=== PATIENT | female | born 1965 | race Caucasian/White ===

== ENCOUNTER → 2016-06-30 | Outpatient (CLI) | payer BC ==
[~2016-06-30] MED LIST: ASPI81TA28 PO; DOXY100C2 PO; ESTR1.252 PO; MULT-513 PO
--- NOTE | 2016-06-30 12:58 | MAMMOGRAPHY REPORT ---
ULTRASOUND OF RIGHT BREAST: 06/30/2016 CLINICAL HISTORY: 50-year-old woman presents for follow-up in the right breast of probably benign hy poechoic circumscribed masses. She has a history of bilateral saline implants. COMPARISON: Comparison is made to exams dated: 12/31/2015 ultrasound, 12/18/2015 mammogram, 10/29/19 12 mammogram, 10/22/2010 mammogram, 08/20/2009 mammogram - [facility], and 03/20/2008 . FINDINGS: Targeted ultrasound was performed in the right upper outer quadrant with particular atten tion to the 11:00 and 12:00 axes. In the 12:00 periareolar right breast, there is a lobulated and c ircumscribed hypoechoic solid versus cystic mass without posterior acoustic shadowing or significant posterior acoustic enhancement. It measures approximately 5.1 x 3.1 x 4.7 mm. When comparing to t he prior ultrasound performed 12/31/2015, this appears slightly smaller in size. At that time it me asured 8.0 x 5.5 x 8.0 mm. In the 11:00 right breast, 3 cm from the nipple, there is a circumscribe d isoechoic solid-appearing mass measuring 4.7 x 4.9 x 4.7 mm. The previous ultrasound performed 2015 demonstrated a similar appearing isoechoic mass which measured 5.3 x 5.0 x 5.1 mm. This is considered stable. In the 11:00 periareolar right breast there is a lobulated parallel isoechoi c solid-appearing mass measuring 4.6 x 2.8 x 5.2 mm, previously measured 5.6 x 3.2 x 5.5 mm. This i s also considered stable. There are tubular anechoic structures leading up to this mass which could represent ducts, suggesting this could represent a papilloma. I discussed with the patient that th yumiko masses could represent fibroadenomas or papillomas and it is controversial as papillomas all req uire surgical excision. We could potentially perform ultrasound-guided core biopsy of all 3 masses, but given that they are stable to decreased in size compared to the prior exam, it is reasonable to perform another targeted ultrasound to ensure longer stability. If any of the masses enlarge at ne xt follow up, an ultrasound guided core biopsy will be required. IMPRESSION: ACR-BI-RADS CATEGORY 3: PROBABLY BENIGN - FOLLOW-UP RECOMMENDED 3 circumscribed benign-appearing masses in the 11:00 and 12:00 axes of the right breast are stable t o subtly decreased in size compared to the prior exam. Another six-month follow-up targeted ultraso und is needed to ensure longer stability. Annual bilateral screening mammography will also be due a t that time. These results are recommendations were discussed with the patient at the time of the exam. Steffi Eduardo M.D. ay/:06/30/2016 12:04:46 Patient Intake Coordinator: Dr. Steffi Eduardo, [facility] letter sent: Follow Up Recommended 3 BI-RADS Code: ACR-BI-RADS Category 3: Probably Benign
== END | disposition home or self-care (01) ==
LOC: C.MAMM 11:33
PROVIDERS: ATTEND Surgery
DX: N63 Unspecified lump in breast (principal); Z98.82 Breast implant status

== ENCOUNTER → 2016-12-20 | Outpatient (CLI) | payer BC ==
--- NOTE | 2016-12-20 15:03 | MAMMOGRAPHY REPORT ---
BILATERAL DIGITAL DIAGNOSTIC MAMMOGRAM TOMOSYNTHESIS WITH CAD AND TARGETED BILATERAL ULTRASOUND: 12/08 CLINICAL HISTORY: 51-year-old woman with a history of saline implants presents for annual bilateral m ammography and also reassess benign-appearing hypoechoic masses in the right breast seen on prior ult rasound. TECHNIQUE: Bilateral CC and MLO views of the breasts with and without implant displacement views wer e obtained. Tomosynthesis was also performed on the implant displaced views. Additional implant dis placed spot magnification left CC and ML views were also obtained. Current study was also evaluated with a Computer Aided Detection (CAD) system. COMPARISON: Comparison is made to exams dated: 06/30/2016 ultrasound, 12/31/2015 ultrasound, 12/18/19 16 mammogram, 10/29/2011 mammogram, 10/22/2010 mammogram, and 08/20/2009 mammogram - [facility]. BREAST COMPOSITION: The tissue of both breasts is heterogeneously dense, which may obscure small mas ses. FINDINGS: Bilateral subpectoral saline implants are intact. There are a few benign rim calcificatio ns in the breasts. On the implant displaced views, there is a possible new cluster of microcalcifica tions in the 6:00 anterior left breast for which additional spot magnification views were obtained. On the spot magnification views, there is a 3.5 mm cluster of amorphous microcalcifications in the 6: 00 anterior subareolar breast, not definitely seen on prior mammograms. There are possibly a few mor e amorphous microcalcifications medial and anterior to the first. No other suspicious microcalcifica tions are seen in the visualized left breast. The new 3.5 mm cluster of calcifications are indetermi dangelo, warranting definitive characterization with a stereotactic biopsy. On the implant displaced vi ews, there is stable nodularity bilaterally. No focal area of architectural distortion is identified . No other suspicious calcifications. Targeted ultrasound was performed in the 11:00 and 12:00 axes of the right breast, and also in the le ft breast superior and lateral breast to assess for the mammographic nodularity. In the right 12:00 axis, 1 cm from the nipple, a round hypoechoic solid versus cystic mass is again identified, measurin g 3.9 x 3.2 x 4.6 mm, which is decreased comparing to the ultrasound performed 12/31/2015, at which t julio cesar it measured 8.0 x 5.5 x 8.0 mm. In the 11:30 right breast, 2 cm from the nipple, a tiny anechoic cyst is identified measuring 1.7 mm. In the 11:00 right breast, 3 cm from the nipple, there is an i soechoic lobulated mass with adjacent tubular anechoic structures which could represent an intraducta l mass measuring 4.6 x 3.0 x 4.6 mm. This was previously labeled 11:00 periareolar breast and measur ed 5.6 x 3.2 x 5.5 mm approximately 1 year ago. In the 11:00 right breast, 3-4 cm from the nipple, t here is another possible intraductal mass versus 2 adjacent masses measuring 5.0 x 2.9 by approximate ly 5.2 mm and this previously measured 5.3 x 5.0 x 5.1 mm. Although this could represent a papilloma and the additional bilateral similar appearing masses could represent papillomatosis, definitive lola racterization of this largest mass is recommended. Additional targeted ultrasound was performed in the left breast and hypoechoic and anechoic circumscr ibed masses are seen in the left breast. In particular, in the 12:00 left breast, 2 cm from the nipp le, there is a lobulated hypoechoic solid versus cystic mass measuring 4.4 x 2.9 x 4.3 mm. An isoech oic solid versus cystic mass in the 11:00 left breast, 1 cm from the nipple, measures 2.9 x 2.4 x 3.6 mm. A benign anechoic simple cyst in the 1:00 left breast, 1 cm from the nipple measures 6.1 mm. A nother mixed hypoechoic to anechoic solid versus cystic mass in the 2:00 left breast, 2 cm from the n ipple measures 3.5 x 3.2 x 3.5 mm. Pending benign pathology results from the bilateral breast biopsi es, could follow the indeterminate hypoechoic solid versus cystic masses in the left breast 11:00, 12 :00 and 2:00 axes in 6 months. IMPRESSION: ACR BI-RADS CATEGORY 4: SUSPICIOUS, TARGETED ULTRASOUND ACR BI-RADS CATEGORY 4: SUSPICIO US 1. There is a new 3.5 mm cluster of amorphous microcalcifications in the 6:00 anterior/subareolar le ft breast for which a left breast stereotactic guided biopsy is recommended. 2. There are stable to decreased indeterminate solid versus cystic masses in the right breast and si milar appearing hypoechoic masses throughout the left breast. Given that some of the masses in the 1 1:00 left breast could possibly represent intraductal masses such as papillomas, definitive character ization with ultrasound guided core biopsy of the largest mass in the 11:00 right breast, 3-4 cm from the nipple is recommended. Further management of the remainder of the similar appearing masses in michael th breasts can be made once pathology results are available. These results and recommendations were discussed with the patient at the time of the exam. She tenta tively scheduled the bilateral breast biopsies prior to leaving our department. Approximately 10% of breast cancers are not detected with mammography. A negative mammographic report should not delay biopsy if a clinically suggestive mass is present. Steffi Eduardo M.D. ay/:12/20/2016 12:39:04 Water Treatment Plant Engineer: Raven BURRIS(R)(M), [facility] letter sent: Abnormal 4/5 BI-RADS Code: ACR BI-RADS Category 4: Suspicious Ultrasound BI-RADS: ACR BI-RADS Category 4: Suspici ous
== END | disposition home or self-care (01) ==
LOC: C.MAMM 10:43
PROVIDERS: ATTEND Surgery
DX: R92.0 Mammographic microcalcification found on diagnostic imaging of breast (principal); Z98.82 Breast implant status

== ENCOUNTER → 2017-01-05 | Outpatient (CLI) | payer BC ==
--- NOTE | 2017-01-05 13:19 | Discharge Instructions ---
Discharge Instructions Procedure Procedure Date: Jan 05, 2017. Reason for visit: Left Calcs; Us Bx R Mass. Discharge Discharge Date: Jan 05, 2017. Discharge Diagnosis: status post breast biopsy Instructions Activity Recommendations: Additional Limitations (see below) Return to School/Work: no limitations Recommended Home Diet: No Limitations Provider Instructions: ACTIVITY RECOMMENDATIONS: * No lifting, pushing, pulling or exercising the affected side for three days. RETURN TO SCHOOL/WORK: * You may return to work/school after the procedure, but do not perform any strenuous activities for 24 to 48 hours. MEDICATIONS: * Tylenol (two 325 mg) every four to six hours if needed for mild pain (if not allergic to Tylenol). DIET: * Resume previous diet. SPECIAL CARE INSTRUCTIONS: * Keep biopsy site dry for 24 hours. May shower after 24 hours, but do not soak (bathe) incision. * May remove Tegaderm (plastic patch) tomorrow AFTER showering. * Leave the steri-strips on for one week. Allow the steri-strips to fall off by themselves. If not off after one week, you may remove them. You may place a Bandaid crosswise over the strips, if desired. * Apply ice 10 minutes on and 10 minutes off as needed. * Wear a bra at bedtime to sleep more comfortably for 2-3 days. * Your referring physician should have the results after approximately 5 to 7 business days. * Call for unusual bleeding, fever, drainage, etc or if you have any questions call during normal business hours or after hours call Dr Kirby, [phone]. FOLLOW UP VISIT: Follow-up with Referring Physician as scheduled. Allergies Uncoded Allergies: SULFA (Allergy, Intermediate, hives, 01/02/11) [facility] Recommendations: Call your doctor if: * Temperature above 101 degrees * Pain not relieved by pain medicine ordered * There is increased drainage or redness from any incision * You have any unanswered questions or concerns. Your Doctors Instructions noted above were prepared by provider Dania Kirby. Patient Signature Section: Patient Instructions Signature Page Kathrin Camarena Patient (or Guardian) Signature/Date: I have read and understand the instructions given to me by my caregivers. Caregiver/RN/Doctor Signature/Date: The above-named patient and/or guardian has received patient instructions on this date. + Original Patient Signature Page (only) stays with chart. Please make copy for patient.
--- NOTE | 2017-01-05 13:43 | MAMMOGRAPHY REPORT ---
STEREOTACTIC GUIDED BIOPSY LEFT BREAST: 01/05/2017 CLINICAL HISTORY: Indeterminate calcifications in the left 6:00 anterior breast. PATIENT CONSENT: The procedure, risks, benefits, and alternatives of stereotactic biopsy with clip pl acement were discussed with the patient, and verbal and written consent was obtained. A timeout was performed immediately prior to the procedure. PROCEDURE DESCRIPTION: With stereotactic guidance, aseptic technique, and lidocaine as a local anesth etic (1% lidocaine to anesthetize the skin and 1% lidocaine with epinephrine to anesthetize the deepe r tissues), the calcifications of concern in the left 6:00 anterior breast were sampled multiple time s with a 9-gauge vacuum-assisted biopsy needle ([employer] Eviva petite). The path of approach was caudoc ranial. The specimen radiograph demonstrates calcifications to be present in the samples. A metalli c marker clip was placed at the biopsy site. This was confirmed on postprocedure mammograms. Direct pressure was applied at the biopsy site and hemostasis was readily achieved. The patient tolerated the procedure without complication. She was given wound care instructions. COMPARISON: Comparison is made to exams dated: 12/20/2016 ultrasound, 12/20/2016 mammogram, 7 ultrasound, 12/31/2015 ultrasound, 12/18/2015 mammogram, and 10/29/2011 mammogram - [facility]. IMPRESSION: STEREOTACTIC GUIDED BIOPSY Stereotactic biopsy of indeterminate calcifications in the left 6:00 anterior breast, with clip place ment. The patient will receive pathology results from her referring provider. Dania Kirby M.D. ah/:01/05/2017 13:20:50 Paediatric Surgeon: Pearl BURRIS(Bennie)(M), [facility]
--- NOTE | 2017-01-06 07:54 | MAMMOGRAPHY REPORT ---
ULTRASOUND GUIDED BIOPSY RIGHT BREAST: 01/05/2017 CLINICAL HISTORY: Right 11:00 breast mass, 3-4 cm from the nipple. PATIENT CONSENT: The procedure, risks and benefits were discussed with the patient and informed writt en consent was obtained. A timeout was performed immediately prior to the procedure. PROCEDURE DESCRIPTION: With ultrasound guidance, aseptic technique, and lidocaine as the local anesth etic (1% lidocaine to anesthetize the skin and 1% lidocaine with epinephrine to anesthetize the deepe r tissues), the mass of concern in the right 11:00 breast was sampled 4 times with a 14-gauge Achieve biopsy needle. Immediately thereafter, with ultrasound guidance, aseptic technique, and lidocaine a s the local anesthetic, a metallic localizer clip was placed at the biopsy site. Direct pressure was applied to the site immediately post procedure and hemostasis was achieved. Postprocedure unilatera l mammograms were performed to confirm placement of the clip in the expected location of the breast m ass. The patient tolerated the procedure without complication. She was given wound care instructions . The specimens were sent to pathology for analysis. COMPARISON: Comparison is made to exams dated: 12/20/2016 ultrasound, 12/20/2016 mammogram, 7 ultrasound, 12/31/2015 ultrasound, 12/18/2015 mammogram, and 10/29/2011 mammogram - [facility]. IMPRESSION: ULTRASOUND GUIDED BIOPSY Ultrasound-guided core needle biopsy of the right 11:00 breast mass, with clip placement. The patien t will receive pathology results from her referring provider. Dania Kirby M.D. /:01/05/2017 13:54:04 Seismograph Operator Helper: Debra BURRIS(R)(M), [facility]
--- NOTE | 2017-01-06 07:55 | MAMMOGRAPHY REPORT ---
BILATERAL DIGITAL DIAGNOSTIC MAMMOGRAM TOMOSYNTHESIS: 01/05/2017 CLINICAL HISTORY: Status post left breast stereotactic biopsy and right breast ultrasound guided biop sy. TECHNIQUE: Breast tomosynthesis in addition to standard 2D mammography was performed. Postprocedura l right CC and ML implant displaced tomosynthesis images including C views and 2-D left CC and ML vie ws were obtained. COMPARISON: Comparison is made to exams dated: 01/05/2017 stereotactic biopsy, 12/20/2016 ultrasound , 12/20/2016 mammogram, 06/30/2016 ultrasound, 12/31/2015 ultrasound, and 12/18/2015 mammogram - [facility]. BREAST COMPOSITION: The tissue of both breasts is heterogeneously dense, which may obscure small mas ses. FINDINGS: A new ribbon-shaped biopsy marker clip is seen within the right upper outer quadrant statu s post ultrasound guided biopsy of a right 11:00 breast mass. A new dumbbell-shaped biopsy marker cl ip is seen at the site of the biopsied calcifications in the left 6:00 anterior breast. No significa nt postbiopsy hematoma is seen. IMPRESSION: POST PROCEDURE IMAGING FOR MARKER PLACEMENT New biopsy marker clips status post bilateral biopsies. Pathology results are pending. Approximately 10% of breast cancers are not detected with mammography. A negative mammographic report should not delay biopsy if a clinically suggestive mass is present. Dania Kirby M.D. ah/:01/05/2017 14:03:05 Rejogger: Debra BURRIS(R)(M), [facility] BI-RADS Code: Post Procedure Imaging For Marker Placement
== END | disposition home or self-care (01) ==
LOC: C.MAMM 12:32
PROVIDERS: ATTEND Surgery
DX: R92.0 Mammographic microcalcification found on diagnostic imaging of breast (principal); N63.20 Unspecified lump in the left breast, unspecified quadrant